=== PATIENT | male | born 1980 | race Caucasian/White ===

== ENCOUNTER 2016-12-16 12:12 | Outpatient (CLI) | payer OTHER | END 2016-12-16 12:13 | disposition home or self-care (01) | DX: M23.222 Derangement of posterior horn of medial meniscus due to old tear or injury, left knee (principal); M25.862 Other specified joint disorders, left knee; M25.462 Effusion, left knee; M25.562 Pain in left knee ==

== ENCOUNTER 2017-03-07 09:41 | Day surgery (SDC) | payer OTHER ==
[~2017-03-07 09:41] MED LIST: ACETAMINOPHEN 1,000 MG/100 ML 100 ML IV ONE; CELECOXIB 100 MG CAPSULE PO ONE; ceFAZolin 2 GM/50 ML 50 ML IV ONE
[2017-03-07] MEDS ORDERED: LACTATED RINGERS 1,000 ML IV ONE ×2 (10:10→13:46)
[2017-03-07] MEDS ORDERED: BUPIVACAINE 0.25% PF 30 ML VIAL SUBQ ONE (11:39)
[2017-03-07] MEDS ORDERED: ROPIVACAINE 0.2% PF 20 ML AMPULE SUBQ ONE (11:40)
[2017-03-07] MEDS ORDERED: MORPHINE PF 5 MG/10 ML AMP SUBQ ONE (11:41)
[2017-03-07] MEDS ORDERED: MIDAZOLAM 2 MG/2 ML VIAL IVP ONE (11:45)
[2017-03-07] MEDS ORDERED: LIDOCAINE-MPF 2% 5 ML VIAL IM ONE (11:45)
[2017-03-07] MEDS ORDERED: DEXAMETHASONE 4 MG/ML VIAL IVP ONE (11:45)
[2017-03-07] MEDS ORDERED: ONDANSETRON 4 MG/2 ML VIAL IVP ONE (11:45)
[2017-03-07] MEDS ORDERED: ceFAZolin 2 GM/50 ML BAG IV ONE (11:45)
[2017-03-07] MEDS ORDERED: ACETAMINOPHEN 1,000 MG/100 ML VIAL IV ONE (11:45)
[2017-03-07] MEDS ORDERED: fentaNYL 100 MCG/2 ML VIAL IVP ONE (11:45)
[2017-03-07] MEDS: HYDROmorphone 1 MG/ML SYRINGE ONE ×4 (12:32→12:47)
[2017-03-07] MEDS: ONDANSETRON 4 MG/2 ML VIAL ONE ×2 (13:06→13:10)
[2017-03-07] MEDS ORDERED: METOCLOPRAMIDE 10 MG/2 ML VIAL IVP ONE (14:57)
== END 2017-03-07 09:42 | disposition home or self-care (01) ==
PROC: 0SBD4ZZ Excision of Left Knee Joint, Percutaneous Endoscopic Approach (ICD-10-PCS; principal; 2017-03-07 11:30)
DX: S83.242A Other tear of medial meniscus, current injury, left knee, initial encounter (principal); G47.33 Obstructive sleep apnea (adult) (pediatric)
CPT/HCPCS: 29881; A9270; J0131; J0690; J1170; J7120